=== PATIENT | male | born 1930 | race Caucasian/White ===

== ENCOUNTER → 2017-04-11 | Day surgery (SDC) | payer MEDICARE, BC ==
[~2017-04-11] MED LIST: Lactated Ringers 1,000 ML IV SCH; Propofol 200 MG/20 ML SDV IV ONE
[2017-04-11 08:44] VITALS: BP 128/59
--- NOTE | 2017-04-11 10:30 | OR ---
DATE OF OPERATION: 04/11/2017 PREOPERATIVE DIAGNOSIS: ABDOMINAL BLOATING. POSTOPERATIVE DIAGNOSIS: ABDOMINAL BLOATING. SURGEON: Rahul Goff MD PROCEDURE: ESOPHAGOGASTRODUODENOSCOPY WITH BIOPSIES X1, CYNDY ANESTHESIA: [employer] due to GERD and advanced age. COMPLICATIONS: None. SPECIMEN: 1. Duodenal biopsy x1. 2. CYNDY. FINDINGS: 1. Full-length EGD. 2. Mild to moderate duodenitis, duodenal bulb. 3. Mild hiatal hernia with no distal esophagitis or Carrasquillo's changes. RECOMMENDATIONS: Medical followup with Dr. Hogan. Recommend proton pump therapy for patient's duodenitis. INDICATIONS: The patient has been having complaints of abdominal bloating and some reflux symptoms. Dr. Hogan recommended EGD. DESCRIPTION OF PROCEDURE: The patient was prepped and draped, placed in a left lateral decubitus position. A lubricated Olympus gastroscope inserted over a bit and easily intubated in the esophagus. Esophageal lining was benign in its entire course. The Z-line was crisp around 37 cm. It was associated with a mild sized hiatal hernia. There was no distal esophagitis, stricturing, ulceration, or Carrasquillo's changes. The scope was intubated in the stomach through the pylorus and into the third portion of the duodenum. The second and third portion of the duodenum were benign. Duodenal bulb was inflamed and erythematous without any focal ulcerations consistent with duodenitis. No signs of any ulcerative lesions were seen and biopsy was taken. Scope was brought back into the stomach and retroflexed. The upper fundus and cardia were benign other than the hiatal hernia visualized from below. No signs of any peptic ulcer disease, polyps, mass, ulceration throughout the length of the stomach. A CLOtest was obtained. Air was then suctioned. Scope was removed without complication. DARRYN/JONATHAN /[id number]
== END ==
LOC: CC.SDS 07:11
PROVIDERS: ATTEND Family Medicine
DX: K29.80 Duodenitis without bleeding (principal); K44.9 Diaphragmatic hernia without obstruction or gangrene; K21.9 Gastro-esophageal reflux disease without esophagitis; Z88.1 Allergy status to other antibiotic agents; Z79.82 Long term (current) use of aspirin; Z79.899 Other long term (current) drug therapy; Z87.891 Personal history of nicotine dependence
CPT/HCPCS: 43239; 87081; J2704; J7120; 00740; 88305

== ENCOUNTER → 2017-05-05 | Day surgery (SDC) | payer MEDICARE, BC ==
[~2017-05-05] MED LIST changes: -Propofol 200 MG/20 ML SDV IV ONE
[2017-05-05 09:08] VITALS: BP 148/71
== END ==
LOC: CC.SDS 08:07
PROVIDERS: ATTEND Surgery
DX: K81.9 Cholecystitis, unspecified (principal); Z53.9 Procedure and treatment not carried out, unspecified reason; I10 Essential (primary) hypertension; N39.0 Urinary tract infection, site not specified; M19.90 Unspecified osteoarthritis, unspecified site; N40.1 Benign prostatic hyperplasia with lower urinary tract symptoms; R35.1 Nocturia; J44.9 Chronic obstructive pulmonary disease, unspecified; K21.9 Gastro-esophageal reflux disease without esophagitis; E78.00 Pure hypercholesterolemia, unspecified; E55.9 Vitamin D deficiency, unspecified; F17.210 Nicotine dependence, cigarettes, uncomplicated; Z79.51 Long term (current) use of inhaled steroids; Z79.82 Long term (current) use of aspirin; Z79.899 Other long term (current) drug therapy; Z87.442 Personal history of urinary calculi; Z86.73 Personal history of transient ischemic attack (TIA), and cerebral infarction without residual deficits

== ENCOUNTER 2018-03-30 23:02 | Observation (INO) | payer MEDICARE, BC ==
[2018-03-30] MEDS ORDERED: Albuterol/Ipratropium 3.0-0.5 MG/3 ML Neb Soln NEB ONE (23:56)
[2018-03-30 23:58] LABS: CHLORIDE,CL 101 mEq/L (98-106); SODIUM,NA 136 mEq/L (136-145)
--- NOTE | 2018-03-31 00:02 | EDM.PDOC ---
ED HPI GENERAL MEDICAL PROBLEM - General Chief Complaint: Respiratory Problem Stated Complaint: SOB Time Seen by Provider: 03/30/18 23:32 Source of Information: Reports: Patient History Limitations: Reports: No Limitations - History of Present Illness INITIAL COMMENTS - FREE TEXT/NARRATIVE: Patient presents with sudden onset of shortness of breath starting at 8 pm after going to bed Tried to sit up in the chair but it didn't seem to help. States does have bouts of SOB often related to his COPD but never seem this severe. Had a pneumothorax 3 years ago and states this shortness of breath feels similar to that. He was seen earlier in clinic by this author for a facial/nose cellulitis. Had an injection of Rocephin and started on Bactrim. Has not developed a rash. Has been coughing, productive at times of thick phlegm. Haven't noticed any wheezing. No edema. Has had chills, questions a fever. Onset: Today, Sudden Duration: Hour(s): Location: Reports: Chest Severity: Moderate Improves with: Reports: Rest Worsens with: Reports: Movement Associated Symptoms: Reports: Cough, cough w sputum, Fever/Chills, Shortness of Breath, Weakness. Denies: Confusion, Diaphoresis, Nausea/Vomiting Nose Pain Score (Numeric/FACES): 4 - Related Data Allergies Allergy/AdvReac Type Severity Reaction Status Date / Time ciprofloxacin [From Cipro] Allergy Muscle Verified 03/30/18 23:10 Aches ciprofloxacin HCl Allergy Muscle Verified 03/30/18 23:10 [From Cipro] Aches Home Meds: Home Meds Aspirin [Halfprin] 81 mg PO DAILY 03/14/16 [History] Latanoprost [Xalatan 0.005% Ophth Soln] 1 drop EYEBOTH DAILY 03/14/16 [History] Timolol Maleate [Timoptic 0.5% Ophth Soln] 1 drop EYEBOTH DAILY 03/14/16 [ History] amLODIPine [Norvasc] 5 mg PO DAILY 03/14/16 [History] atorvaSTATin [Lipitor] 20 mg PO DAILY 03/14/16 [History] Albuterol [Ventolin HFA] 1 - 2 puff INH Q4H 04/10/17 [History] Cholecalciferol (Vitamin D3) [Vitamin D3] 5,000 unit PO DAILY 04/10/17 [History] Tiotropium Br/Olodaterol HCl [Stiolto Respimat Inhal [place]] 2 puff IH DAILY [History] Omeprazole 20 mg PO DAILY 03/30/18 [History] Sulfamethoxazole/Trimethoprim [Sulfamethoxazole-Tmp Ds Tablet] 1 each PO BID [History] Past Medical History Other Cardiovascular History: high blood pressure, on meds for years; high cholesterol, on meds for years Respiratory History: Reports: COPD Other Respiratory History: says he had a collapsed lung last year, had coughing , wheezing, went to hospital in [place], said that it happened because he had a cold and coughed too hard. Concerned about coughing too hard and having that happen again; saw pulmonogist for first time this February; says he has phlegm does not cough up anything Other Gastrointestinal History: received Prilosec from apiarist for reflux , says it helps Genitourinary History: Reports: Renal Calculus, UTI, Recurrent Neurological History: Reports: CVA Psychiatric History: Reports: None Endocrine/Metabolic History: Reports: None Hematologic History: Reports: None Immunologic History: Reports: None Oncologic (Cancer) History: Reports: None Dermatologic History: Reports: None - Past Surgical History Head Surgeries/Procedures: Reports: None HEENT Surgical History: Reports: Cataract Surgery Cardiovascular Surgical History: Reports: None Male Surgical History: Reports: None Endocrine Surgical History: Reports: None Neurological Surgical History: Reports: None Musculoskeletal Surgical History: Reports: Shoulder Surgery Oncologic Surgical History: Reports: None Social & Family History - Tobacco Use Smoking Status *Q: Former Smoker Years of Tobacco use: 70 Used Tobacco, but Quit: No ED ROS GENERAL - Review of Systems Review Of Systems: See Below Constitutional: Reports: Fever, Chills, Malaise, Weakness HEENT: Reports: Nose Pain (has sore in left nare) Respiratory: Reports: Shortness of Breath, Cough Cardiovascular: Reports: No Symptoms Endocrine: Reports: Fatigue GI/Abdominal: Denies: Abdominal Pain, Nausea, Vomiting : Reports: No Symptoms Musculoskeletal: Reports: No Symptoms Skin: Reports: Erythema (left cheek) Neurological: Reports: No Symptoms ED EXAM, GENERAL - Physical Exam Exam: See Below Exam Limited By: No Limitations General Appearance: Alert, WD/WN, Mild Distress Ears: Normal External Exam, Normal TMs Nose: Nasal Swelling (left nare), Other (redness and pain to inner left nare) Throat/Mouth: Normal Inspection, Normal Oropharynx Head: Normocephalic Neck: Normal Inspection, Supple, Non-Tender Respiratory/Chest: Decreased Breath Sounds Cardiovascular: Regular Rate, Rhythm, Tachycardia GI/Abdominal: Normal Bowel Sounds, Soft, Non-Tender Extremities: Normal Inspection, Normal Capillary Refill Neurological: Alert, Oriented Skin Exam: Warm, Dry Course - Vital Signs Last Recorded V/S: Last Vital Signs Temp 100.5 F 03/30/18 23:17 Pulse 110 H 03/30/18 23:17 Resp 24 H 03/30/18 23:17 BP 187/93 H 03/30/18 23:17 Pulse Ox 95 03/30/18 23:17 - Orders/Labs/Meds Orders: Active Orders 24 hr Category Date Time Status Chest 2V [CR] Stat Exams 03/30/18 23:33 Taken CBC WITH AUTO DIFF [HEME] Stat Lab 03/30/18 23:28 Received COMPREHENSIVE METABOLIC PN,CMP [CHEM] Stat Lab 03/30/18 23:28 Received CRP [C-REACTIVE PROTEIN] [CHEM] Stat Lab 03/30/18 23:28 Received D-DIMER QUANTITATIVE [COAG] Stat Lab 03/30/18 23:28 Received PRO B-TYPE NATRIUR PEPT,BNPPRO [CHEM] Stat Lab 03/30/18 23:28 Received TROPONIN I [CHEM] Stat Lab 03/30/18 23:28 Received - Re-Assessments/Exams Free Text/Narrative Re-Assessment/Exam: 03/31/18 Chest xray reviewed. No obvious pneumothorax DuoNeb given with good relief Labs reviewed, blood cultures ordered. Discussed admission with patient. Dr. Goff will follow during hospitalizations. Departure - Departure Time of Disposition: 00:24 Disposition: Refer to Observation Condition: Fair Clinical Impression: COPD exacerbation, Facial cellulitis - Discharge Information *PRESCRIPTION DRUG MONITORING PROGRAM REVIEWED*: Not Applicable *COPY OF PRESCRIPTION DRUG MONITORING REPORT IN PATIENT ESEQUIEL: Not Applicable Forms: ED Department Discharge - Problem List & Annotations (1) COPD exacerbation SNOMED Code(s): 792929888 Code(s): J44.1 - CHRONIC OBSTRUCTIVE PULMONARY DISEASE W (ACUTE) EXACERBATION Status: Acute Priority: High (2) Facial cellulitis SNOMED Code(s): 431098000 Code(s): L03.211 - CELLULITIS OF FACE Status: Acute Priority: High - Problem List Review Problem List Initiated/Reviewed/Updated: Yes - My Orders Last 24 Hours: My Active Orders 03/30/18 23:28 CBC WITH AUTO DIFF [HEME] Stat COMPREHENSIVE METABOLIC PN,CMP [CHEM] Stat CRP [C-REACTIVE PROTEIN] [CHEM] Stat D-DIMER QUANTITATIVE [COAG] Stat PRO B-TYPE NATRIUR PEPT,BNPPRO [CHEM] Stat TROPONIN I [CHEM] Stat 03/30/18 23:33 Chest 2V [CR] Stat - Assessment/Plan Admission H&P: Please use this note as an admission H&P Last 24 Hours: My Active Orders 03/30/18 23:28 CBC WITH AUTO DIFF [HEME] Stat COMPREHENSIVE METABOLIC PN,CMP [CHEM] Stat CRP [C-REACTIVE PROTEIN] [CHEM] Stat D-DIMER QUANTITATIVE [COAG] Stat PRO B-TYPE NATRIUR PEPT,BNPPRO [CHEM] Stat TROPONIN I [CHEM] Stat 03/30/18 23:33 Chest 2V [CR] Stat Assessment:: COPD Exacerbation Facial Cellulitis Plan: Will admit observation. Leslye Mcneal QID. Oxygen as needed. Dr. Goff to follow during admission.
[2018-03-31] MEDS ORDERED: Albuterol/Ipratropium 3.0-0.5 MG/3 ML Neb Soln NEB PRN (00:46)
[2018-03-31] MEDS ORDERED: Acetaminophen 325 MG Tab PO PRN (00:46)
[2018-03-31] MEDS ORDERED: Sodium Chloride 0.9% 10 ML Syringe FLUSH PRN (00:46)
[2018-03-31] MEDS ORDERED: Ondansetron 4 MG/2 ML SDV IV PRN (00:46)
[2018-03-31] MEDS ORDERED: Albuterol 8 GM Inhaler INH SCH (00:46)
[2018-03-31] MEDS ORDERED: Ondansetron 4 MG Tab.DIS PO PRN (00:46)
[2018-03-31] MEDS ORDERED: Enoxaparin 40 MG/0.4 ML Syringe SUBCUT SCH (00:46)
[2018-03-31] MEDS: Clindamycin Phosphate in D5W 300 MG in Premix Bag 1 BAG IV SCH ×8 (01:10→13:38)
[2018-03-31] MEDS ORDERED: Albuterol 8 GM Inhaler INH PRN (01:34)
[2018-03-31] MEDS ORDERED: Pantoprazole 40 MG Tab.CR PO SCH (07:00)
[2018-03-31] MEDS ORDERED: Cholecalciferol (Vitamin D3) 1,000 Unit Tab PO SCH (08:00)
[2018-03-31] MEDS ORDERED: Aspirin 81 MG Tab.EC PO SCH (08:00)
[2018-03-31] MEDS ORDERED: amLODIPine 2.5 MG Tab PO SCH (08:00)
[2018-03-31] MEDS ORDERED: atorvaSTATin 20 MG Tab PO SCH (08:00)
[2018-03-31] MEDS ORDERED: Latanoprost 0.005% Ophth Soln 2.5 ML Bottle EYEBOTH SCH (08:00)
[2018-03-31] MEDS ORDERED: Timolol Maleate 0.5% Ophth Soln 5 ML Bottle EYEBOTH SCH (08:00)
[2018-03-31] MEDS: Albuterol 0.083% 2.5 MG/3 ML Neb Soln NEB SCH ×2 (09:09→13:12)
[2018-03-31 13:57] VITALS: BP 96/60
--- NOTE | 2018-03-31 21:32 | PCM.DCSUM1 ---
Discharge Summary - Hospital Course Free Text/Narrative:: Patient presented to ER with complaints of sudden onset of shortness of breath. He had been getting ready to go to bed when suddenly started to feel short of breath. Had been seen earlier in clinic for a facial/nare cellulitis. He was given Rocephin and started on Bactrim. No skin rash. Started to shake from a fever and got short of breath. He has intermittent issues with shortness of breath at times due to COPD but wasn't able to get relief by sitting up and resting in recliner. Initial labs and CXR stable, CRP at 4.0. Was given DuoNeb and had good response. Admitted for IV Cleocin for his cellulitis and nebulizer treatments. Diagnosis: Stroke: No - Discharge Data Discharge Date: 03/31/18 Discharge Disposition: Home, Self-Care 01 Condition: Good - Discharge Diagnosis/Problem(s) (1) COPD exacerbation SNOMED Code(s): 572701032 ICD Code: J44.1 - CHRONIC OBSTRUCTIVE PULMONARY DISEASE W (ACUTE) EXACERBATION Status: Acute Priority: High (2) Facial cellulitis SNOMED Code(s): 841360283 ICD Code: L03.211 - CELLULITIS OF FACE Status: Acute Priority: High - Patient Summary/Data Complications: none Hospital Course: Patient feels well this am. Cellulitis has had good response to IV Cleocin, facial redness and swelling is improved. Feels less short of breath this am. Does feel nebulizer did help his breathing. Oxygen sat good. Now afebrile. Up and around in room without difficulty. - Patient Instructions Diet: Usual Diet as Tolerated Activity: As Tolerated - Discharge Plan *PRESCRIPTION DRUG MONITORING PROGRAM REVIEWED*: Not Applicable *COPY OF PRESCRIPTION DRUG MONITORING REPORT IN PATIENT ESEQUIEL: Not Applicable Prescriptions/Med Rec: Albuterol/Ipratropium [DuoNeb 3.0-0.5 MG/3 ML] 3 ml NEB Q4H PRN #1 box PRN Reason: Shortness Of Breath/wheezing Home Medications: Home Meds Aspirin [Halfprin] 81 mg PO DAILY 03/14/16 [History] Latanoprost [Xalatan 0.005% Ophth Soln] 1 drop EYEBOTH DAILY 03/14/16 [History] Timolol Maleate [Timoptic 0.5% Ophth Soln] 1 drop EYEBOTH DAILY 03/14/16 [ History] amLODIPine [Norvasc] 5 mg PO DAILY 03/14/16 [History] atorvaSTATin [Lipitor] 20 mg PO DAILY 03/14/16 [History] Albuterol [Ventolin HFA] 1 - 2 puff INH Q4H PRN 04/10/17 [History] Cholecalciferol (Vitamin D3) [Vitamin D3] 5,000 unit PO DAILY 04/10/17 [History] Tiotropium Br/Olodaterol HCl [Stiolto Respimat Inhal [place]] 2 puff IH DAILY [History] Omeprazole 20 mg PO DAILY 03/30/18 [History] Sulfamethoxazole/Trimethoprim [Sulfamethoxazole-Tmp Ds Tablet] 1 each PO BID [History] Albuterol/Ipratropium [DuoNeb 3.0-0.5 MG/3 ML] 3 ml NEB Q4H PRN #1 box 03/31/18 [Rx] Forms: ED Department Discharge Referrals: Heidi Ricketts PA [Primary Care Provider] - (Follow up with Loly in 10 days ) - Discharge Summary/Plan Comment DC Time >30 min.: No Discharge Summary/Plan Comment: Discharge home DuoNebs as needed Resume Bactrim Follow up in 10 days for recheck - General Info Date of Service: 03/31/18 Admission Dx/Problem (Free Text: Facial Cellulitis Functional Status: Reports: Pain Controlled, Tolerating Diet, Ambulating - Review of Systems General: Reports: Fatigue. Denies: Fever, Weakness HEENT: Reports: Other (nare redness/mild swelling to cheek). Denies: Ear Pain, Sore Throat Pulmonary: Denies: Shortness of Breath, Cough Cardiovascular: Denies: Chest Pain, Edema, Lightheadedness Gastrointestinal: Denies: Abdominal Pain, Nausea, Vomiting Genitourinary: Reports: No Symptoms Musculoskeletal: Reports: No Symptoms Skin: Reports: Other (redness to left cheek is improved since yesterday) Neurological: Reports: No Symptoms Psychiatric: Reports: No Symptoms - Patient Data Vitals - Most Recent: Last Vital Signs Temp 98.2 F 03/31/18 12:00 Pulse 99 03/31/18 12:00 Resp 20 07/17/18 12:00 BP 96/60 03/31/18 12:00 Pulse Ox 96 03/31/18 12:00 Weight - Most Recent: 144 lb I&O - Last 24 hours: Intake & Output 03/31/18 03/31/18 03/31/18 06:59 14:59 22:59 Intake Total 50 Balance 50 Lab Results - Last 24 hrs: Laboratory Results - last 24 hr 03/30/18 03/30/18 03/30/18 Range/Units 23:28 23:28 23:28 WBC 9.0 (5.0-10.0) 10^3/uL RBC 4.57 (4.50-6.00) 10^6/uL Hgb 14.6 (14.0-18.0) g/dL Hct 44.2 (40.0-54.0) % MCV 96.7 H (82.0-94.0) fL MCH 31.9 (27.0-32.0) pg MCHC 33.0 (33.0-38.0) g/dL RDW Coeff of Sal 14.3 (11.0-15.0) % Plt Count 138 L (150-400) 10^3/uL Neut % (Auto) 90.0 H (35-85) % Lymph % (Auto) 5.1 L (10-55) % Bee % (Auto) 3.5 (0-16) % Eos % (Auto) 1.1 (0-5) % Baso % (Auto) 0.3 (0-3) % Neut # (Auto) 8.08 H (1.80-7.00) 10^3/uL Lymph # (Auto) 0.46 L (1.00-4.80) 10^3/uL Bee # (Auto) 0.31 (0.00-0.80) 10^3/uL Eos # (Auto) 0.10 (0.00-0.45) 10^3/uL Baso # (Auto) 0.03 10^3/uL D-Dimer, Quantitative 0.96 H (0.00-0.50) Sodium 136 (136-145) mEq/L Potassium 3.7 (3.5-5.0) mEq/L Chloride 101 (98-106) mEq/L Carbon Dioxide 26 (21-32) mmol/L BUN 15 (7-18) mg/dL Creatinine 1.0 (0.7-1.3) mg/dL Est Cr Clr Drug Dosing 45.19 mL/min Estimated GFR (MDRD) > 60 (>=60) mL/min Glucose 134 H D (75-99) mg/dL Calcium 8.9 (8.4-10.1) mg/dL Total Bilirubin 0.4 (0.0-1.0) mg/dL AST 20 (15-37) U/L ALT 17 (12-78) U/L Alkaline Phosphatase 123 H (46-116) U/L Troponin I (0.00-0.06) ng/mL C-Reactive Protein 4.0 H (0.2-0.8) mg/dL NT-Pro-B Natriuret Pep 80 (0-1000) pg/mL Total Protein 7.7 (6.4-8.2) g/dL Albumin 3.6 (3.4-5.0) g/dL 03/30/18 Range/Units 23:28 WBC (5.0-10.0) 10^3/uL RBC (4.50-6.00) 10^6/uL Hgb (14.0-18.0) g/dL Hct (40.0-54.0) % MCV (82.0-94.0) fL MCH (27.0-32.0) pg MCHC (33.0-38.0) g/dL RDW Coeff of Sal (11.0-15.0) % Plt Count (150-400) 10^3/uL Neut % (Auto) (35-85) % Lymph % (Auto) (10-55) % Bee % (Auto) (0-16) % Eos % (Auto) (0-5) % Baso % (Auto) (0-3) % Neut # (Auto) (1.80-7.00) 10^3/uL Lymph # (Auto) (1.00-4.80) 10^3/uL Bee # (Auto) (0.00-0.80) 10^3/uL Eos # (Auto) (0.00-0.45) 10^3/uL Baso # (Auto) 10^3/uL D-Dimer, Quantitative (0.00-0.50) Sodium (136-145) mEq/L Potassium (3.5-5.0) mEq/L Chloride (98-106) mEq/L Carbon Dioxide (21-32) mmol/L BUN (7-18) mg/dL Creatinine (0.7-1.3) mg/dL Est Cr Clr Drug Dosing mL/min Estimated GFR (MDRD) (>=60) mL/min Glucose (75-99) mg/dL Calcium (8.4-10.1) mg/dL Total Bilirubin (0.0-1.0) mg/dL AST (15-37) U/L ALT (12-78) U/L Alkaline Phosphatase (46-116) U/L Troponin I < 0.017 (0.00-0.06) ng/mL C-Reactive Protein (0.2-0.8) mg/dL NT-Pro-B Natriuret Pep (0-1000) pg/mL Total Protein (6.4-8.2) g/dL Albumin (3.4-5.0) g/dL Med Orders - Current: Current Medications Discontinued Medications Acetaminophen (Tylenol) 650 mg PO Q4H PRN PRN Reason: Pain (Mild 1-3)/fever Last Admin: 03/31/18 01:08 Dose: 650 mg Albuterol (Proventil Neb Soln) 2.5 mg NEB QID [facility] Last Admin: 03/31/18 13:12 Dose: 2.5 mg Albuterol (Ventolin Hfa) 0 gm INH Q4H [facility] Last Admin: 03/31/18 01:52 Dose: Not Given Albuterol (Ventolin Hfa) 1 gm INH Q4H PRN PRN Reason: Shortness of Breath Albuterol/Ipratropium (Duoneb 3.0-0.5 Mg/3 Ml) 3 ml NEB ONETIME ONE Stop: 03/30/18 23:57 Last Admin: 03/31/18 00:01 Dose: 3 ml Albuterol/Ipratropium (Duoneb 3.0-0.5 Mg/3 Ml) 3 ml NEB Q4H PRN PRN Reason: Shortness Of Breath/wheezing Amlodipine Besylate (Norvasc) 5 mg PO DAILY [facility] Last Admin: 03/31/18 10:30 Dose: Not Given Aspirin (Halfprin) 81 mg PO DAILY [facility] Last Admin: 03/31/18 10:28 Dose: Not Given Atorvastatin Calcium (Lipitor) 20 mg PO DAILY [facility] Last Admin: 03/31/18 10:30 Dose: Not Given Cholecalciferol (Vitamin D3) 5,000 units PO DAILY [facility] Last Admin: 03/31/18 10:31 Dose: Not Given Enoxaparin Sodium (Lovenox) 40 mg SUBCUT Q24H [facility] Last Admin: 03/31/18 01:09 Dose: 40 mg Clindamycin Phosphate 300 mg/ (Premix) 50 mls @ 100 mls/hr IV Q6H [facility] Last Admin: 03/31/18 13:38 Dose: Not Given Clindamycin Phosphate 300 mg/ (Premix) 50 mls @ 100 mls/hr IV 0200,0800,1400, 2000 [facility] Last Admin: 03/31/18 13:13 Dose: 100 mls/hr Latanoprost (Xalatan 0.005% Ophth Soln) 0 ml EYEBOTH DAILY [facility] Last Admin: 03/31/18 10:31 Dose: Not Given Non-Formulary Medication (Tiotropium Br/Olodaterol Hcl [Stiolto Respimat Inhal [place]]) 2 puff IH DAILY [facility] Last Admin: 03/31/18 10:31 Dose: Not Given Ondansetron HCl (Zofran Odt) 4 mg PO Q4H PRN PRN Reason: nausea, able to take PO Ondansetron HCl (Zofran) 4 mg IV Q4H PRN PRN Reason: Nausea/Vomiting Pantoprazole Sodium (Protonix) 40 mg PO ACBREAKFAST [facility] Last Admin: 03/31/18 09:07 Dose: Not Given Sodium Chloride (Saline Flush) 10 ml FLUSH ASDIRECTED PRN PRN Reason: Keep Vein Open Timolol Maleate (Timoptic 0.5% Ophth Soln) 0 ml EYEBOTH DAILY [facility] Last Admin: 03/31/18 10:30 Dose: Not Given - Exam Quality Assessment: Denies: Supplemental Oxygen General: Reports: Alert, Oriented HEENT: Reports: Mucous Membr. Moist/[place] Neck: Reports: Supple Lungs: Reports: Clear to Auscultation, Decreased Breath Sounds Cardiovascular: Reports: Regular Rate, Regular Rhythm GI/Abdominal Exam: Normal Bowel Sounds, Soft, Non-Tender Extremities: Normal Inspection, No Pedal Edema Skin: Reports: Other (redness to left cheek much improved)
== END 2018-03-31 09:05 | disposition home or self-care (01) ==
LOC: CC.ED 23:02 → UNDOADMOB 03-31 00:18 → OBSVTOIN 03-31 00:18 → CC.ED 03-31 00:18 → INTOOBSV 03-31 00:18 → CC.MS 03-31 00:18
PROVIDERS: ADMIT Physician Assistant Medical; ATTEND Family Medicine
DX: J44.1 Chronic obstructive pulmonary disease with (acute) exacerbation (principal); L03.211 Cellulitis of face; I10 Essential (primary) hypertension; Z87.891 Personal history of nicotine dependence; Z79.82 Long term (current) use of aspirin; Z79.899 Other long term (current) drug therapy
CPT/HCPCS: 36415; 71046; 80053; 83880; 84484; 85025; 85379; 86140; 87040; 93005; 96365; 96366; 96372; 96376; 99285; A9270-GY; G0378; J1650; J3490; J7620-GY